=== PATIENT | female | born 1990 | race Two or more races ===

== ENCOUNTER 2021-12-22 12:38 | Day surgery (SDC) | payer BC ==
[2021-12-22] MEDS ORDERED: Lidocaine 1% MPF 2 ML VIAL ONE (13:46)
[2021-12-22 13:56] VITALS: BMI 36.6
[2021-12-22] MEDS ORDERED: Fentanyl 100 MCG/2 ML VIAL ONE ×4 (14:25→18:21)
[2021-12-22] MEDS ORDERED: EPINEPHrine 1 MG/ML AMP ONE (15:33)
[2021-12-22] MEDS ORDERED: Bupivacaine PF 0.5% 30 ML VIAL ONE (15:33)
[2021-12-22] MEDS ORDERED: PROPOFOL 20 ML ONE (15:39)
[2021-12-22] MEDS ORDERED: Lidocaine 2% PF 5 ML VIAL ONE (15:40)
[2021-12-22] MEDS ORDERED: Rocuronium Bromide 10 MG/ML (10ML VIAL) ONE (15:43)
[2021-12-22] MEDS ORDERED: Promethazine HCl 25 MG/ML VIAL ONE (15:48)
[2021-12-22] MEDS ORDERED: HYDROmorphone 0.5 MG/0.5 ML SYRINGE ONE (15:48)
[2021-12-22] MEDS ORDERED: ceFAZolin 2 GM/Dextrose 50 ML IVPB ONE (15:58)
[2021-12-22] MEDS ORDERED: Ondansetron PF 4 MG/2 ML Vial ONE (16:15)
[2021-12-22] MEDS ORDERED: Dexamethasone 20 MG/5 ML VIAL ONE (16:15)
[2021-12-22] MEDS ORDERED: Ketorolac Tromethamine 30 MG/ML VIAL ONE ×2 (16:16)
[2021-12-22] MEDS ORDERED: ePHEDrine Sulfate 50 MG/10 ML VIAL ONE (17:06)
[2021-12-22] MEDS ORDERED: Glycopyrrolate 0.2 MG/ML 5 ML SYRINGE ONE (17:46)
[2021-12-22] MEDS ORDERED: HYDROcodone/Acetaminophen 7.5/325 mg Tablet ONE (18:53)
[2021-12-22 21:07] LABS: SARS-CoV-2 PCR by NAA Not Detected (NotDetected)
== END 2021-12-22 19:55 | disposition home or self-care (01) ==
LOC: CSHSDC 12:38 → CSHERS 12:38 → CSHSDC 12:38 → EDSTATUS 12:51 → CSHSDC 19:55
PROVIDERS: ATTEND Obstetrics & Gynecology
PROC: 10T24ZZ Resection of Products of Conception, Ectopic, Percutaneous Endoscopic Approach (ICD-10-PCS; principal; 2021-12-22)
PROC: 0UT78ZZ Resection of Bilateral Fallopian Tubes, Via Natural or Artificial Opening Endoscopic (ICD-10-PCS; principal; 2021-12-22)
PROC: 0UDB7ZX Extraction of Endometrium, Via Natural or Artificial Opening, Diagnostic (ICD-10-PCS; principal; 2021-12-22)
DX: O00.101 Right tubal pregnancy without intrauterine pregnancy (principal); O08.1 Delayed or excessive hemorrhage following ectopic and molar pregnancy; K66.1 Hemoperitoneum; K21.9 Gastro-esophageal reflux disease without esophagitis; K58.9 Irritable bowel syndrome, unspecified; Z79.899 Other long term (current) drug therapy; Z88.2 Allergy status to sulfonamides; Z88.5 Allergy status to narcotic agent; Z91.018 Allergy to other foods; Z20.822 Contact with and (suspected) exposure to COVID-19
CPT/HCPCS: 88302; 88305; J0171; J0690; J1100; J1170; J1885; J2001; J2405; J2550; J2704; J3010; S0020; U0003; U0005

== ENCOUNTER 2022-11-03 16:32 | Day surgery (SDC) | payer BC ==
[2022-11-03] MEDS ORDERED: hydrALAZINE 20 MG/ML VIAL SLOW IVP PRN (17:04)
[2022-11-03 17:06] VITALS: BMI 37.5
[2022-11-03 17:37] LABS: Bilirubin Neg (Negative); Blood, Urine Negative (Negative); Clarity Clear (Clear); Glucose, Urine (Dipstick) Normal (Negative); Ketone, Urine Negative (Negative); Leukocyte Negative (Negative); Nitrite Negative (Negative); Protein, Urine (Dipstick) Negative (Neg-Trace); Specific Gravity, Urine 1.005 (1.005-1.030); Urobilinogen Normal mg/dL (Less than 2)
[2022-11-03 17:51] LABS: Bacteria/HPF Rare-Few HPF (None Seen); RBC/HPF None Seen HPF (0-3); Squamous Epithelial 0-3 HPF (0-3); WBC/HPF 0-3 HPF (0-3)
[2022-11-03] MEDS ORDERED: Cyclobenzaprine 10 MG TAB PO SCH (18:00)
[2022-11-03] MEDS ORDERED: Acetaminophen 500 MG TAB PO SCH (18:00)
== END 2022-11-03 18:35 | disposition home or self-care (01) ==
LOC: CSHLD/OP 16:32
PROVIDERS: ATTEND Obstetrics & Gynecology
DX: O99.891 Other specified diseases and conditions complicating pregnancy (principal); Z3A.26 26 weeks gestation of pregnancy; Z88.2 Allergy status to sulfonamides; Z91.011 Allergy to milk products; Z88.6 Allergy status to analgesic agent; Z91.018 Allergy to other foods
CPT/HCPCS: 51701; 81001; 99281

== ENCOUNTER 2023-01-21 02:21 | Inpatient (IN) | payer BC ==
[2023-01-21 02:52] VITALS: BMI 38.2
[2023-01-21] MEDS ORDERED: hydrALAZINE 20 MG/ML VIAL SLOW IVP PRN (03:55)
[2023-01-21] MEDS ORDERED: Promethazine HCl 25 MG/ML VIAL IM PRN (07:20)
[2023-01-21] MEDS ORDERED: Tranexamic Acid 1,000 MG in Sodium Chloride 0.9% 250 ML 250 ML IVPB PRN (07:20)
[2023-01-21] MEDS ORDERED: Methylergonovine 0.2 MG/ML VIAL IM PRN (07:20)
[2023-01-21] MEDS ORDERED: Lidocaine 1% (PF) 30 ML VIAL SC PRN (07:20)
[2023-01-21] MEDS ORDERED: Carboprost 250 MCG/ML AMP IM PRN (07:20)
[2023-01-21] MEDS ORDERED: Ondansetron PF 4 MG/2 ML Vial IVP PRN (07:20)
[2023-01-21] MEDS ORDERED: Misoprostol 200 MCG TAB PR PRN (07:20)
[2023-01-21] MEDS ORDERED: Diphenoxylate HCl/Atropine Tablet PO PRN (07:20)
[2023-01-21] MEDS ORDERED: Acetaminophen 500 MG TAB PO PRN (07:20)
[2023-01-21] MEDS ORDERED: Ibuprofen 800 MG TAB PO PRN (07:20)
[2023-01-21] MEDS ORDERED: NS w/ Oxytocin 30 units 500 ML IV SCH ×2 (07:30)
[2023-01-21] MEDS ORDERED: Penicillin G Potassium 5 MILL.UNITS VIAL ONE (08:15)
[2023-01-21] MEDS ORDERED: Penicillin G Potassium 5 MILL.UNITS in Sodium Chloride 0.9% 100 ML IVPB SCH ×2 (08:15→16:00)
[2023-01-21 09:35] LABS: Hemoglobin 12.2 g/dL (12.0-15.5); Mean Corpuscular HGB CONC 32.7 g/dL (32.0-36.0); Mean Corpuscular Hemoglobin 28.2 pg (27.0-33.0); Mean Corpuscular Volume 86.1 fl (81.6-98.3); Mean Platelet Volume 11.9 fl (7.4-10.4); Platelet Count 258 10x3/uL (150-450); Red Blood Cell (RBC) Count 4.33 10x6/uL (3.90-5.03); White Blood Cell (WBC) Count 10.5 10x3/uL (3.5-10.5)
[2023-01-21 09:51] LABS: HBSAg Index 0.15 S/CO (0-0.99); Hep B Surf Ag Non-Reactive S/CO (NonReactive)
[2023-01-21 09:52] LABS: Syphilis Antibody Nonreactive (Nonreactive); Syphilis Antibody Index 0.13 S/CO (<1.00 Non-Reactive)
[2023-01-21] MEDS ORDERED: Penicillin G 2.5 MILL.units 2.5 MILL.UNITS in Premix Bag 1 BAG IVPB SCH (12:15)
[2023-01-21 14:44] LABS: SARS-CoV-2 NAA Rapid Test Not Detected (NotDetected)
[2023-01-21] MEDS: Penicillin G 2.5 MILL.units 2.5 MILL.UNITS in Premix Bag 1 BAG IVPB SCH ×2 (16:30→20:25)
[2023-01-21] MEDS ORDERED: Bupivacaine 0.25% HCL 30 ML VIAL ONE (18:52)
[2023-01-21] MEDS ORDERED: Bupivacaine 0.5% 10 ML VIAL ONE (18:52)
[2023-01-21] MEDS ORDERED: Fentanyl 2 mcg/Bup 0.1% Cadd 100 ML ONE (20:58)
[2023-01-22] MEDS ORDERED: Fentanyl 100 MCG/2 ML VIAL ONE ×2 (00:03→06:26)
[2023-01-22] MEDS ORDERED: Fentanyl 2 mcg/Bupivacaine 0.1% Cassette 100 ML EPIDURAL SCH (01:00)
[2023-01-22] MEDS ORDERED: diphenhydrAMINE 50 MG/ML VIAL IVP PRN (01:00)
[2023-01-22] MEDS ORDERED: Acetaminophen 325 MG TAB PO PRN (01:00)
[2023-01-22] MEDS ORDERED: Moisturizing Cream (Eucerin) 113 GM JAR TOP PRN (01:00)
[2023-01-22] MEDS ORDERED: Naloxone HCl 0.4 mg/ml Vial IVP PRN ×2 (01:00)
[2023-01-22] MEDS ORDERED: Communication Order-Pharmacy FS SCH (01:00)
[2023-01-22] MEDS ORDERED: Lactated Ringer's 500 ML IV PRN (01:00)
[2023-01-22] MEDS ORDERED: Promethazine HCl 25 MG/ML VIAL IM PRN ×2 (01:00→11:18)
[2023-01-22] MEDS ORDERED: ePHEDrine Sulfate 50 MG/10 ML VIAL SLOW IVP PRN (01:00)
[2023-01-22] MEDS ORDERED: Ondansetron PF 4 MG/2 ML Vial IVP PRN ×2 (01:00→11:18)
[2023-01-22] MEDS: Penicillin G 2.5 MILL.units 2.5 MILL.UNITS in Premix Bag 1 BAG IVPB SCH ×3 (01:28→14:34)
[2023-01-22] MEDS ORDERED: diphenhydrAMINE 25 MG CAP PO PRN (11:18)
[2023-01-22] MEDS ORDERED: Benzocaine-Menthol 82.5 ML CAN TOP PRN (11:18)
[2023-01-22] MEDS ORDERED: Measles/Mumps/Rubella 10 MCG/0.5 ML VIAL SC ONE (11:18)
[2023-01-22] MEDS ORDERED: Boostrix 0.5 ML (Tdap) VIAL (>/=7 yrs of age) IM ONE (11:18)
[2023-01-22] MEDS ORDERED: Bisacodyl 10 MG SUPP PR PRN (11:18)
[2023-01-22] MEDS ORDERED: Lanolin Ointment 7 GM TUBE TOP PRN (11:18)
[2023-01-22] MEDS ORDERED: Milk Of Magnesia 30 ML UDCUP PO PRN (11:18)
[2023-01-22] MEDS ORDERED: Methylergonovine 0.2 MG/ML VIAL IM PRN (11:18)
[2023-01-22] MEDS ORDERED: Preparation H Ointment 28 GM TUBE PR PRN (11:18)
[2023-01-22] MEDS ORDERED: NS w/ Oxytocin 30 units 500 ML IV SCH (11:18)
[2023-01-22] MEDS ORDERED: Zolpidem Tartrate 5 MG TAB PO PRN (11:18)
[2023-01-22] MEDS ORDERED: hydrALAZINE 20 MG/ML VIAL SLOW IVP PRN (11:18)
[2023-01-22] MEDS ORDERED: Prenatal Vitamin 1 TAB PO SCH (12:00)
[2023-01-22] MEDS ORDERED: Docusate 100 MG CAP PO SCH (12:00)
[2023-01-22] MEDS: HYDROcodone/Acetaminophen 5/325 mg Tablet PO PRN ×3 (13:17→22:22)
[2023-01-22] MEDS: Ibuprofen 800 MG TAB PO SCH ×2 (14:34→19:32)
[2023-01-22] MEDS: Ferrous Sulfate 325 MG TAB PO SCH (17:49)
[2023-01-22] MEDS: Docusate 100 MG CAP PO SCH (19:32)
[2023-01-23] MEDS: HYDROcodone/Acetaminophen 5/325 mg Tablet PO PRN ×4 (02:28→20:08)
[2023-01-23 04:01] LABS: Hemoglobin 10.9 g/dL (12.0-15.5); Mean Corpuscular HGB CONC 31.6 g/dL (32.0-36.0); Mean Corpuscular Hemoglobin 27.9 pg (27.0-33.0); Mean Corpuscular Volume 88.5 fl (81.6-98.3); Mean Platelet Volume 11.3 fl (7.4-10.4); Platelet Count 219 10x3/uL (150-450); RBC Distribution Width 15.2 % (11.5-14.5); White Blood Cell (WBC) Count 10.2 10x3/uL (3.5-10.5)
[2023-01-23] MEDS: Ibuprofen 800 MG TAB PO SCH ×3 (05:40→22:23)
[2023-01-23] MEDS: Ferrous Sulfate 325 MG TAB PO SCH ×2 (08:11→16:13)
[2023-01-23] MEDS: Docusate 100 MG CAP PO SCH ×2 (08:13→20:20)
[2023-01-23] MEDS: Prenatal Vitamin 1 TAB PO SCH (08:13)
[2023-01-24] MEDS: HYDROcodone/Acetaminophen 5/325 mg Tablet PO PRN ×4 (03:30→17:11)
[2023-01-24] MEDS: Ibuprofen 800 MG TAB PO SCH ×2 (05:10→14:40)
[2023-01-24 07:19] VITALS: BP 112/78; TEMP 98.3
[2023-01-24] MEDS: Ferrous Sulfate 325 MG TAB PO SCH ×2 (08:00→17:10)
[2023-01-24] MEDS: Prenatal Vitamin 1 TAB PO SCH (08:09)
[2023-01-24] MEDS: Docusate 100 MG CAP PO SCH (08:27)
== END 2023-01-24 18:46 | disposition home or self-care (01) | DRG 807 ==
LOC: CSHLD/OP 02:21 → CSHLD 11:58 → CSHPP 01-22 13:05
PROVIDERS: ADMIT Obstetrics & Gynecology; ATTEND Obstetrics & Gynecology
PROC: 10E0XZZ Delivery of Products of Conception, External Approach (ICD-10-PCS; principal; 2023-01-22)
DX: O24.420 Gestational diabetes mellitus in childbirth, diet controlled (principal); Z37.0 Single live birth; O13.4 Gestational [pregnancy-induced] hypertension without significant proteinuria, complicating childbirth; Z20.822 Contact with and (suspected) exposure to COVID-19; Z3A.38 38 weeks gestation of pregnancy; D50.9 Iron deficiency anemia, unspecified; O99.02 Anemia complicating childbirth; Z90.49 Acquired absence of other specified parts of digestive tract; Z79.82 Long term (current) use of aspirin; Z79.899 Other long term (current) drug therapy; Z91.018 Allergy to other foods; Z88.2 Allergy status to sulfonamides; Z88.8 Allergy status to other drugs, medicaments and biological substances; O99.824 Streptococcus B carrier state complicating childbirth; O70.0 First degree perineal laceration during delivery
CPT/HCPCS: 36415; 36416; 51702; 85027; 86780; 86850; 86900; 86901; 87340; 99285; J2405; J2540; J3010; J3490; S0020; U0002